=== PATIENT | female | born 1955 | race African-American/Black ===

== ENCOUNTER 2019-06-29 16:30 | Inpatient (IN) | payer MEDICARE, MEDICAID, SELFPAY ==
--- NOTE | ~2019-06-29 | US_ITS ---
EXAMINATION: US carotid duplex BI DATE: 06/30/2019 11:42 INDICATION: Cerebral vascular accident. TECHNIQUE: Grayscale, color Doppler, and pulsed Doppler images of the cervical carotid arteries were obtained. The degree of vessel stenosis is placed in one of the following categories: normal, <50%, 5 0-69%, >=70% but less than near-occlusion, near-occlusion, or total occlusion. Note that percent sten osis relative to normal distal artery lumen diameter is indirectly measured from velocity measurement s as described by Mani, et al. Radiology 2003; 229:340-346. COMPARISON: Ultrasound 07/18/2017 FINDINGS: RIGHT: The right common carotid artery (CCA) peak systolic velocity (PSV) is 53 cm/s. The right internal car otid artery (ICA) PSV is 54 cm/s. The right ICA end-diastolic velocity (EDV) is 21 cm/s. The right IC A/CCA PSV ratio is 1.0. Grayscale and color Doppler images yield an estimate of <50% diameter reducti on from plaque in the ICA. There is antegrade flow in the right vertebral artery. LEFT: The left CCA PSV is 79 cm/s. The left ICA PSV is 74 cm/s. The left ICA EDV is 27 cm/s. The left ICA/C CA PSV ratio is 0.9. Grayscale and color Doppler images yield an estimate of <50% diameter reduction from plaque in the ICA. There is antegrade flow in the left vertebral artery. IMPRESSION: 1. <50% stenosis in the right internal carotid artery. 2. <50% stenosis in the left internal carotid artery. Reviewed, dictated and finalized at location A. FITTER SUPERVISOR MAINTENANCE
--- NOTE | ~2019-06-29 | MR_ITS ---
EXAMINATION: MR brain/brain stem wo/w con EXAM DATE: 06/30/2019 11:42 INDICATION: Stroke. TECHNIQUE: Magnetic resonance imaging (MRI) of the brain/brain stem obtained without contrast. Sagit natalia T1, axial diffusion, gradient echo (T2*), T1, T2, FLAIR sequences obtained. Patient was then inj ected with 20 cc intravenous Multihance contrast. Axial and coronal postcontrast T1 weighted sequence s obtained. Correlation is made to head CT from yesterday. FINDINGS: Sizable acute infarction the right basal ganglia, internal and external capsular, region me asuring about 2 x 3 cm in greatest axial dimensions. There are additional scattered small right linwood sular acute infarctions. There is probable small amount subarachnoid hemorrhage which is better visualized on head CT from yes terday, stable. No left-sided or posterior fossa acute infarctions. No obstructive hydrocephalus or e vidence of underlying brain mass. No extra-axial collections. There are no areas of abnormal enhancem ent on the post contrast images. IMPRESSION: 1. Right basal ganglia/capsular and scattered right subinsular cortical acute infarctions. 2. Small right frontal subarachnoid hemorrhage unchanged. Reviewed, dictated and finalized at location B. BOARD INTELLIGENCE ANALYST
--- NOTE | ~2019-06-29 | CT_ITS ---
EXAMINATION: CTA brain DATE: 06/30/2019 22:15 INDICATION: Stroke and subarachnoid hemorrhage TECHNIQUE: Computed tomographic angiography (CTA) of the head was performed without and with 100 mL O mnipaque-350 intravenous contrast. Volume-rendered and maximum intensity projection 3D reconstruction s of the intracranial arteries were created by the technologist on a separate workstation. The dose-l ength product was 1090.00 mGy-cm. Automated exposure control and iterative reconstruction technique w ere employed. COMPARISON: MRI from today and CT from yesterday FINDINGS: There is an evolving acute/subacute infarction of the right basal ganglia and internal and external capsule. Subarachnoid hemorrhage seen anteriorly in the right frontal lobe is slightly incre ased. There is no mass effect. No intraparenchymal hemorrhage is identified. There is no intracranial mass. The ventricles are normal in size. There is no hemodynamically significant stenosis in the leonides tebral and basilar arteries. There is calcified atherosclerosis and mild stenosis of the cavernous po rtion of the right internal carotid artery. There is expected decreased vascularity in the areas of i nfarction. The left vertebral artery is dominant. There are no aneurysms identified. Both A1 and P1 segments are patent. IMPRESSION: 1. Evolving acute/subacute infarct of the right basal ganglia and internal and external capsule with associated decreased vascularity. 2. Small right frontal subarachnoid hemorrhage with minimal increase. Reviewed, dictated and finalized at location A. FILLING ROOM SWEEPER
--- NOTE | ~2019-06-29 | XR_ITS ---
EXAMINATION: XR chest 2V DATE: 06/29/2019 17:49 INDICATION: Weakness and lethargy TECHNIQUE: frontal and lateral views of the chest were obtained. COMPARISON: None FINDINGS: Lungs appear clear on the frontal projection. Side indeterminate linear lower lobe discoid atelectasi s projecting over the lower thoracic spine on the lateral projection. No pulmonary edema, pleural eff usion or pneumothorax. The cardiomediastinal silhouette is within normal limits for AP technique. The re are bridging osteophytes at multiple levels in the spine, consistent with diffuse idiopathic skele natalia hyperostosis (DISH). IMPRESSION: 1. Mild linear discoid atelectasis in one of the lower lobes. Reviewed, dictated and finalized at location A. E SHOW JUDGE
--- NOTE | ~2019-06-29 | CT_ITS ---
EXAMINATION: CT abdomen pelvis w con DATE: 06/29/2019 17:34 INDICATION: Abdominal pain, lethargy and generalized weakness. TECHNIQUE: Computed tomography (CT) of the abdomen and pelvis was performed with 100 mL Omnipaque-350 intravenous contrast. Automated exposure control and iterative reconstruction technique were employe d. The dose-length product was 1474.42 mGy-cm. COMPARISON: 03/28/2016 FINDINGS: Lung bases are clear. Arch size is normal. No pericardial or pleural effusion. Diffuse hepatic steato sis. Dependently layering high attenuation gallstones in the normal-appearing gallbladder. No intra o r extra hepatic biliary ductal dilation. Spleen, pancreas, bilateral adrenal glands and kidneys are n ormal. Bowels including the appendix are normal. Bladder, uterus and bilateral adnexa are normal. No free intraperitoneal gas or fluid. No pathologically enlarged abdominal or pelvic lymphadenopathy. Se justo lower lumbar spondylosis. There are bridging osteophytes at multiple levels in the thoracic spin e consistent with diffuse idiopathic skeletal hyperostosis (DISH). IMPRESSION: 1. Cholelithiasis. No acute intra-abdominal/pelvic process. Reviewed, dictated and finalized at location A. E GATE MORTISER OPERATOR
--- NOTE | ~2019-06-29 | CT_ITS ---
EXAMINATION: CT brain wo con DATE: 06/29/2019 17:35 INDICATION: Lethargy, generalized weakness. TECHNIQUE: Computed tomography (CT) of the head was performed without intravenous contrast. Sagittal and coronal reconstructions were performed. The mA was adjusted according to patient size. Iterative reconstruction technique was employed. The dose-length product was 605.33 mGy-cm. COMPARISON: None FINDINGS: 3 small regions of decreased attenuation extending from the right frontal lobe centrum semiovale, cau dally to include the right caudate nucleus, right basal ganglia and right subinsular white matter. Th ere is a slightly posterior fourth small region of decreased attenuation at the right front oparietal region. No evident mass effect or encephalomalacia and would favor a subacute to early aircraft sheet metal mechanic cm infarct. Subtle linear region of increased attenuation in the more cephalad and anterior right fr ontal lobe which does not appear to conform to the configuration of the gyri and favor streak artifac t over subarachnoid hemorrhage. No abnormal extra axial fluid collection. Ventricles are normal and s ymmetric. No mass/mass effect. Mild mucoperiosteal thickening in the bilateral ethmoid sinuses. The o rbits and mastoid air cells are normal. IMPRESSION: 1. 4 region of decreased attenuation in close proximity involving the right frontal/frontoparietal lo bes and basal ganglia most likely related to infarct could be late acute to early chronic. 2. Small region of subtle linear increased attenuation in the anterior right frontal lobe with config uration favoring streak artifact over subarachnoid hemorrhage. If patient's neurologic status decline s would consider repeat CT or MRI. Reviewed, dictated and finalized at location A. R DOUBLER IMPRESSION: 1. 4 region of decreased attenuation in close proximity involving the right fro ntal/frontoparietal lobes and basal ganglia most likely related to infarct coul d be late acute to early chronic. 2. Small region of subtle linear increased attenuation in the anterior right fr ontal lobe with configuration favoring streak artifact over subarachnoid hemorr immanuel. If patient's neurologic status declines would consider repeat CT or MRI.
--- NOTE | 2019-06-29 16:29 | ED.WEAKNESS ---
HPI - Weakness General Chief complaint: Weakness Stated complaint: lethargic/weak Time Seen by Provider: 06/29/19 16:29 Source: patient and EMS Mode of arrival: EMS Limitations: no limitations History of Present Illness HPI Narrative: A 64 y/o female presents to the ED, via EMS, with c/o generalized weakness. Pt states that her daughter called EMS today because the patient could not get up to answer the phone. The patient notes that her right knee feels like it is giving out, and that it has been like that for a long time. Per EMS, the patient ran out of insulin weeks ago and has been noncompliant with her HTN medication. EMS states that her blood sugar was over 500 on arrival to the patient's home. Pt adds that her blood sugar has been high intermittently for the last 3-6 months. She reports slight cough, ABD pain, urinary frequency, and diarrhea, but denies decreased food and liquid intake, fever, N/V, dysuria, and hematuria. Pt has a PMHx of HTN, gallstones, hyperlipidemia, and diabetes. Her PCP is Tatiana Jean NP. Complaint: generalized weakness Onset (ago): unknown Duration: constant Location: generalized Context: other (Medication noncompliance) Associated symptoms: other (Slight cough, ABD pain, urinary frequency, diarrhea) Related Data Allergies Allergy/AdvReac Type Severity Reaction Status Date / Time No Known Allergies Allergy Unverified 03/28/16 11:24 Review of Systems Review of Systems: All systems reviewed & are unremarkable except as noted in HPI and below Constitutional: Constitutional: Denies fever(s), Reports weakness (Generalized) and Denies other (Decreased food and liquid intake) Respiratory: Respiratory: Reports cough (Slight) Gastrointestinal: Gastrointestinal: Reports abdominal pain, Reports diarrhea, Denies nausea and Denies vomiting Genitourinary: Genitourinary: Denies hematuria, Reports nocturia and Denies dysuria PENDING SALE TO [facility] Past Medical History Medical History (Updated 06/29/19 @ 18:46 by Carmela Grant MD) Diabetes Gallstones HTN (hypertension) Hyperlipidemia Surgical History Surgical History (Updated 06/29/19 @ 16:52 by Marielena Nathan) Surgical history unknown Social History Social History (Updated 06/29/19 @ 16:52 by Marielena Nathan) Smoking status: Unknown if ever smoked Exam Const: General: cooperative, no acute distress and alert Nutritional Appearance: obese morbidly obese Orientation/consciousness: patient oriented x3 Limitations: no limitations HENMT: Mouth: Yes lip normal and Yes dry mucous membranes Resp: Effort & Inspection: normal respiratory effort Auscultation: clear to auscultation bilaterally Cardio: Rate: tachycardic Rhythm: regular rhythm Heart sounds: Murmur heart sound present systolic Peripheral pulses: dorsalis pedis present bilateral 2+ GI: GI Palp: Yes Soft to palpation and Yes Tenderness to palpation present (GI) (Epigastric) Auscultation: normal bowel sounds Skin: General skin exam: normal color Neuro: General: patient oriented x3 Cognition (Neuro): normal cognition Speech: normal speech Extrem: General: normal to inspection, full ROM, no clubbing, cyanosis or edema and other (Decreased weakness BLE) Psych: Mental Status: mental status grossly normal Affect: normal affect Attitude: cooperative Course Course Emergency Course: Patient with findings of numerous small infarcts on CT that appear to be subacute to chronic in nature. Patient with bilateral lower extremity weakness noted on exam in the ED. Patient with very limited mobility noted by EMS on their initial evaluation. Patient lives alone and is not safe to be on her own at this time. Patient with hyperglycemia and poor management of her chronic health conditions. Patient will be admitted to the hospital service for further evaluation of her CVAs and management of her chronic medical conditions. Patient will likely need some type of rehab or nursing care when she is disch
[2019-06-29 16:31] LABS: Glucose Point of Care 455 (65-105)
[2019-06-29 16:38] VITALS: BP 171/93; PULSE 112; RESP 20; TEMP 37.3; O2SAT 95
--- NOTE | 2019-06-29 16:38 | ECG_ITS ---
Measurements Intervals [place] Rate: 106 P: 49 MI: 152 QRS: 29 QRSD: 85 T: 61 QT: 331 QTc: 441 Interpretive Statements SINUS TACHYCARDIA VOLTAGE CRITERIA FOR LVH NONSPECIFIC T-WAVE ABNORMALITY- LATERAL LEADS ABNORMAL ECG Electronically Signed On 06-30-2019 7:05:21 OPTICAL INSTRUMENT ASSEMBLER by Germán Avery D.O.
[2019-06-29 16:45] VITALS: PULSE 105
[2019-06-29 16:54] LABS: Alveolar/Arterial O2 Gradient 31.1 mmHg; Base Excess ABG -2.9 mEq/l (+/-2.0); Carboxyhemoglobin 0.6 % THb (0-2.0); Device ROOM AIR; Fractional Inspired Oxygen 21 %; HCO3 ABG 21.3 mEq/l (22.0-26.0); Methemoglobin ABG 0.3 %THb (0-1.5); Modified Allen's Test Pass; Oxygen Content ABG 19.5 %vol (16.0-22.0); Oxygen Saturation ABG 95.2 % (95.0-100.0); Oxyhemoglobin 93.7 % THb (90.0-100.0); PCO2 ABG 35.9 mmHg (35.0-45.0); PO2 ABG 75.6 mmHg (80.0-100.0); Reduced Hemoglobin 5.4 %THb (0-5.0); Site Drawn RIGHT RADIAL; Total Hemoglobin 14.8 g/dL (12.0-18.0); pH ABG 7.392 (7.350-7.450)
[2019-06-29] MEDS: SODIUM CHLORIDE 0.9% IV 1,000 ML 999 ML IV CONT (16:55)
[2019-06-29 17:24] LABS: Blood Urea Nitrogen 17 mg/dL (8-26); Estimated CRCL calculation 64 ml/min; Estimated Glomerular Filt Rate 60
[2019-06-29 17:26] LABS: Basophils Percent Auto 0.5 % (0.2-1.2); Eosinophils Percent Auto 0.3 % (0-4.4); Hematocrit 45.8 % (37.0-47.0); Hemoglobin 14.8 g/dL (12.0-15.0); Immature Granulocyte Absolute 0.03 K/mm3 (0.00-0.031); Immature Granulocyte Percent A 0.4 % (0-0.5); Lymphocytes Percent Auto 18.7 % (18.3-44.2); Mean Corpuscular HGB Conc 32.3 g/dl (32-36); Mean Corpuscular Hemoglobin 28.2 pg (26-34); Mean Corpuscular Volume 87.4 fl (80-100); Monocytes Absolute Auto 0.5 K/mm3 (0.1-0.6); Monocytes Percent Auto 6.4 % (2.6-8.5); Neutrophils Absolute Auto 5.5 K/mm3 (1.3-6.7); Neutrophils Percent Auto 73.7 % (45.5-73.1); Platelet Count Result 225 k/mm3 (150-375); Red Blood Count 5.24 M/mm3 (4.2-5.4); Red Cell Distribution Width 13.3 % (11.5-14.5); White Blood Count 7.5 K/mm3 (4.5-10.0)
[2019-06-29 17:35] LABS: Alanine Aminotransferase 28 U/L (4-35); Albumin Level 4.6 g/dL (3.5-5.1); Alkaline Phosphatase 204 U/L (38-126); Aspartate Amino Transferase 25 U/L (14-36); Bilirubin,Total 0.5 mg/dL (0.2-1.3); Blood Urea Nitrogen 18 mg/dL (7-17); Calcium 9.7 mg/dL (8.4-10.2); Carbon Dioxide 19 mmol/L (22-30); Chloride 101 mmol/L (98-107); Creatine Kinase 280 U/L (30-135); Estimated CRCL calculation 78 ml/min; Estimated Glomerular Filt Rate > 60; Glucose 492 mg/dL (65-105); INR 0.9; Lipase 106 U/L (23-300); Magnesium 2.1 mg/dL (1.6-2.3); Potassium 4.7 mmol/L (3.4-5.0); Prothrombin Time 12.3 Seconds (11.1-14.7); Sodium 139 mmol/L (137-145)
[2019-06-29 17:36] LABS: Lactic Acid Reflex 2.5 mmol/L (0.7-2.1)
[2019-06-29 17:47] LABS: Partial Thromboplastin Time < 20.0 SECONDS (22.3-36.8)
[2019-06-29 18:15] LABS: Thyroid Stimulating Hormone Reflex 0.813 uIU/mL (0.465-4.68)
[2019-06-29 18:29] LABS: Add Urine Microscopic? YES; Appearance Urine Clear (Clear); Bilirubin Urine Negative (Negative); Blood Urine 2+ (Negative); Color Urine Yellow (Yellow); Glucose Urine UA 3+ mg/dL (Negative); Ketones Urine 1+ mg/dL (Negative); Leukocyte Esterase Ur Negative LEU/UL (Negative); Nitrate Urine Negative (Negative); Protein Urine Negative (Negative); RBC Urine 21-50 /hpf (0-2); Squamous Epithelial Cell Urine Few /hpf (Few); Urobilinogen Urine Negative mg/dL (<2.0); WBC Urine 0-3 /hpf
[2019-06-29 18:30] LABS: Specific Grav Ur 1.035 (1.001-1.035)
[2019-06-29 18:50] LABS: Glucose Point of Care 421 (65-105)
--- NOTE | 2019-06-29 19:00 | PM.IMHP ---
H&P: HPI History of Present Illness Chief complaint: Weakness. Narrative: Eli Jean is a 64 year old female with type 2 diabetes mellitus, hypertension, and hyperlipidemia who presented to the emergency department earlier this afternoon via EMS from home for evaluation of weakness. She is only a fair historian, as she is not happy with having to be admitted in her answers are short and occasionally unrevealing. Several children are at bedside, and they provide additional information with the patient's permission. A daughter called police for a welfare check after the patient was not answering her phone. The patient was found sitting on her couch and was unable to get up because her right knee ?seemed to be giving out.? Apparently that is not a new finding, however. Random glucose was over 500 on EMS arrival, the patient admits that she has been out of her insulin for many weeks. It sounds like she has been rationing her medications as well, due to financial concerns. She has no complaints at the time my evaluation but did mention having a slight cough, urinary frequency, and loose stools to the emergency department physician. Brain CT today concerning for subacute infarctions and she is being admitted in this setting. She denies vertigo, auditory and visual changes, focal weakness, and paresthesias. She has not had racing heart, palpitations, and denies history of atrial fibrillation. No dysarthria, dysphagia, or facial asymmetry. Review of Systems Review of Systems: Narrative: Twelve systems were reviewed with pertinent positives and negatives as per HPI. No fever, chills, or sweats. She denies cold and flu symptoms. She has chronic dyspnea on exertion, which is unchanged. She has not had nausea or vomiting. Occasional mild dysuria. Denies blurry vision and polyuria. Mild polydipsia today. Except as documented, all other systems were reviewed and are negative. [facility] Past Medical History Medical History (Updated 06/30/19 @ 02:18 by Hiral Dallas PA-C) Gallstones Hyperlipidemia Hypertension Type 2 diabetes mellitus with insulin therapy Hemoglobin A1c is 9.9 today. Surgical History Surgical History (Updated 06/30/19 @ 02:13 by Hiral Dallas PA-C) No significant past surgical history Family History Family History (Updated 06/30/19 @ 02:14 by Hiral Dallas PA-C) Mother Hypertension Sibling Carcinoma of colon Sibling Acute myocardial infarction Father Alcohol abuse Social History Social History (Updated 06/30/19 @ 02:14 by Hiral Dallas PA-C) Social History: The patient lives in her own apartment in [place]. She designates her children as her surrogate decision makers. She wishes to be DNR, but does not have an Advance directive set up. She is a lifelong nonsmoker and denies alcohol and drug use. Spiritual care concerns: No Agree to blood products: No Meds Home Medications and Allergies Home Medications Medication Instructions Recorded Confirmed Type amlodipine 10 mg PO DAILY 06/29/19 06/29/19 History atorvastatin 20 mg PO HS 06/29/19 06/29/19 History diclofenac sodium 75 mg PO BID 06/29/19 06/29/19 History furosemide 20 mg PO DAILY 06/29/19 06/29/19 History insulin NPH isoph U-100 human See Rx Instructions .ROUTE .COMPLEX 06/29/19 06/29/19 History [Novolin N NPH U-100 Insulin] lisinopril 40 mg PO DAILY 06/29/19 06/29/19 History metoprolol tartrate 100 mg PO DAILY 06/29/19 06/29/19 History Allergies Allergy/AdvReac Type Severity Reaction Status Date / Time No Known Allergies Allergy Unverified 03/28/16 11:24 Vital Signs Vital Signs - 24 hr 06/29/19 16:38 06/29/19 16:45 06/29/19 19:20 Temperature 99.1 F Pulse Rate 112 H 105 H 111 H Respiratory Rate 20 18 Blood Pressure 171/93 H 153/74 H Pulse Oximetry 95 100 Exam Narrative: Exam Narrative: General: A well-developed, well-nourished female sitting up in bed in no acute d
[2019-06-29] MEDS: INSULIN HUMAN REGULAR (*BKC) 100 UNITS/ML 10 UNITS SUB-Q (19:04)
[2019-06-29 19:20] VITALS: BP 153/74; PULSE 111; RESP 18; O2SAT 100
[2019-06-29 19:40] VITALS: BP 169/66; PULSE 112; RESP 20; TEMP 37.3; O2SAT 100; BMI 48.3
--- NOTE | 2019-06-29 20:12 | ADMGEN ---
This patient, Eli Jean, was admitted to [address] [facility] Surg Room 323-01. Patient/family oriented to hospital policies and general routines including ID bracelet, bed and alarms, visiting hours, pain management, procedures, bathroom and other care routines, personal items, smoking policy, room service/diet, and visiting hours. Valuables list has been completed. Information on how to activate the Rapid Response Team has been discussed. Patient/Family are encouraged to report perceived risks to care and to ask questions if they do not understand what they are told or what they should do.
[2019-06-29 20:21] LABS: Reflex Lactic Acid Yes or No Add Lactic
--- NOTE | 2019-06-29 20:36 | ADMGEN ---
This patient, Eli Jean, was admitted to 3 [facility] Surg Room 323-01. Patient/family oriented to hospital policies and general routines including ID bracelet, bed and alarms, visiting hours, pain management, procedures, bathroom and other care routines, personal items, smoking policy, room service/diet, and visiting hours. Valuables list has been completed. Information on how to activate the Rapid Response Team has been discussed. Patient/Family are encouraged to report perceived risks to care and to ask questions if they do not understand what they are told or what they should do.
[2019-06-29 21:16] LABS: Lactic Acid 1.5 mmol/L (0.7-2.1)
[2019-06-29] MEDS: SODIUM CHLORIDE 0.9% IV 1,000 ML 125 ML IV CONT (22:18)
[2019-06-29 22:54] LABS: Glucose Point of Care 444 (65-105)
[2019-06-29 22:57] LABS: Glucose Point of Care 403 (65-105)
[2019-06-29 23:46] LABS: Blood Urea Nitrogen 19 mg/dL (7-17); Carbon Dioxide 23 mmol/L (22-30); Chloride 99 mmol/L (98-107); Estimated CRCL calculation 78 ml/min; Estimated Glomerular Filt Rate > 60; Glucose 426 mg/dL (65-105); Potassium 4.1 mmol/L (3.4-5.0); Sodium 136 mmol/L (137-145)
[2019-06-29 23:47] LABS: Hemoglobin A1C 9.9 % (<5.7)
[2019-06-29] MEDS: INSULIN HUMAN NPH (*BKC) 100 UNITS/ML 13 UNITS SUB-Q (23:53)
[2019-06-30] VITALS (11 sets, daily range): BP systolic 118–144; BP diastolic 42–65; PULSE 74–101; RESP 16–20; TEMP 36.3–36.8; O2SAT 98–100
[2019-06-30 01:13] LABS: Glucose Point of Care 413 (65-105)
[2019-06-30] MEDS: INSULIN ASPART (*BKC) 100 UNITS/ML 8 UNITS SUB-Q (01:58)
[2019-06-30] MEDS: ACETAMINOPHEN 325 MG TABLET 650 MG PO (01:58)
[2019-06-30 03:54] LABS: Glucose Point of Care 307 (65-105)
--- NOTE | 2019-06-30 06:00 | ECHO_ITS ---
Patient Info Name: Eli Jean Age: 64 years : 1955 Gender: Female Ht: 66 in Wt: 299 lbs BSA: 2.59 m2 HR: 89 bpm BP: 169 / 66 mmHg Heart Rhythm: Sinus Rhythm Technical Quality: Good Exam Date: 06/30/2019 12:22 PM Exam Location: [facility] Pulmonary Exam Room: [facility] Patient Status: Inpatient Admit Date: 06/29/2019 Staff Ordering Physician: Carmela Grant MD Wheel Assembler: Francy Saeed RDCS Attending Provider: Renato Ramirez MD Referring Physician: Rudy KOHLER; Exam Type: CA echo doppler color flow Study Info Indications - cva Complete two-dimensional, color flow and Doppler transthoracic echocardiogram is performed. Summary 1. There is moderate concentric increased left ventricular wall thickness. 2. Left ventricular systolic function is normal, estimated at 60-65%. 3. The left ventricular diastolic function is grade I diastolic dysfunction. 4. There is moderate to severe aortic valve stenosis with a peak velocity of 371 cm/s, mean gradient of 40 mmHg, and aortic valve area of 0.9 cm2. 5. Compared with 2016. has progressed with prior SKYLAR of 1.4cm2. Left Ventricle Left ventricular chamber dimension is normal. Left ventricular systolic function is normal, estimated at 60-65%. There is moderate concentric increased left ventricular wall thickness. The left ventricular diastolic function is grade I diastolic dysfunction. Right Ventricle Right ventricular chamber dimension is normal. Left Atria Left atrial chamber dimension is mildly enlarged. Right Atria Right atrial chamber dimension is normal. Aortic Valve The aortic valve is trileaflet. There is moderate aortic valve sclerosis. There is moderate to severe aortic valve stenosis with a peak velocity of 371 cm/s, mean gradient of 40 mmHg, and aortic valve area of 0.9 cm2. There is trace aortic valve regurgitation. Pulmonic Valve The pulmonic valve is not well visualized. Mitral Valve The mitral valve has normal leaflets and calcified annulus. Tricuspid Valve The tricuspid valve leaflets are normal. Pericardium/Pleural The pericardium appears normal. Aorta The aortic root size at the sinus of Valsalva is normal. Left Ventricular Outflow Tract Name Value Normal LVOT 2D LVOT Diameter 2.0 cm LVOT Doppler LVOT Peak Gradient 5 mmHg LVOT Mean Gradient 4 mmHg LVOT VTI 25 cm LVOT VTI/AV VTI Ratio 0.3 LVOT Stroke Volume 79 ml LVOT CO 17.7 l/min LVOT CI 6.8 l/min/m2 Pulmonic Valve Name Value Normal PV Doppler PV Peak Gradient 3 mmHg PV Regurgitation Doppler
[2019-06-30 06:31] LABS: Creatine Kinase 231 U/L (30-135)
[2019-06-30] MEDS: AMLODIPINE BESYLATE 5 MG TABLET 10 MG PO (09:00)
[2019-06-30] MEDS: lisinopriL 20 MG TABLET 40 MG PO (09:00)
[2019-06-30] MEDS: DICLOFENAC SOD 75 MG TABLET.EC PO ×2 (09:01→17:27)
[2019-06-30] MEDS: METOPROLOL TARTRATE 50 MG TAB PO ×2 (09:01→20:53)
[2019-06-30] MEDS: FUROSEMIDE 20 MG TABLET PO (09:02)
[2019-06-30] MEDS: SODIUM CHLORIDE 0.9% IV 1,000 ML 125 ML IV CONT ×2 (09:05→20:56)
[2019-06-30] MEDS: INSULIN ASPART (*BKC) 100 UNITS/ML SUB-Q ×3 (09:07→17:27)
[2019-06-30] MEDS: INSULIN HUMAN NPH (*BKC) 100 UNITS/ML 23 UNITS SUB-Q (09:07)
[2019-06-30 09:13] LABS: Glucose Point of Care 352 (65-105)
[2019-06-30 12:00] LABS: Glucose Point of Care 337 (65-105)
[2019-06-30] MEDS: ASPIRIN 81 MG ENTERIC TABLET PO (12:03)
[2019-06-30 17:38] LABS: Glucose Point of Care 371 (65-105)
--- NOTE | 2019-06-30 17:43 | PM.IMPN ---
Progress Note: A&P Assessment and Plan (1) CVA (cerebral vascular accident): Qualifiers: CVA mechanism: unspecified Qualified Code(s): I63.9 - Cerebral infarction, unspecified Code(s): I63.9 - Cerebral infarction, unspecified Status: Acute Assessment and Plan: 06/30/19 17:43 Patient is 64-year-old female with history of diabetes hypertension and and hyperlipidemia was brought to the emergency department the request of her children by EMS see was found in her apartment quite somnolent had not been taking her medication for sometime, patient is a very poor historian her main concern is the pain in her right knee which had been persisting and had been seen by her primary physician and was given steroid injection, patient CT scan of the head showed the patient has a 1. 4 region of decreased attenuation in close proximity involving the right frontal/frontoparietal lobes and basal ganglia most likely related to infarct could be late acute to early chronic. 2. Small region of subtle linear increased attenuation in the anterior right frontal lobe with configuration favoring streak artifact over subarachnoid hemorrhage. If patient's neurologic status declines would consider repeat CT or MRI. Which also showed 1. Right basal ganglia/capsular and scattered right subinsular cortical acute infarctions. 2. Small right frontal subarachnoid hemorrhage unchanged. to further evaluate patien had cardiac echo and carotid US which are essentially normal. patient is on baby aspirin D/W with Dr. Mota patient with subarachhoid hemorrhage, will stop aspirin and order CTA of head (2) Type 2 diabetes mellitus with insulin therapy: Code(s): E11.9 - Type 2 diabetes mellitus without complications; Z79.4 - nursing home (current) use of insulin Status: Acute Assessment and Plan: With hyperglycemia today and hemoglobin A1c of 9.9%. She ran out of insulin many weeks ago, is a concerned about the cost of these. Will initiate sliding scale insulin, Accu-Cheks, and hypoglycemic protocol. (3) Elevated creatine kinase: Code(s): R74.8 - Abnormal levels of other serum enzymes Status: Acute Assessment and Plan: Patient apparently had been sitting on a cot for quite a while today. Level is not elevated enough to be consider rhabdomyolysis, but we will trend. Judicious IV fluid rehydration. (4) Hypertension: Code(s): I10 - Essential (primary) hypertension Status: Acute Assessment and Plan: Blood pressures were reviewed and they are not at goal. I am not certain she has been taking all of her medications as prescribed. For now will resume antihypertensives and monitor daily. Time Spent With Patient Time with patient: 15 - 25 minutes Subjective Date/time seen: 06/30/19 17:43 Patient is 64-year-old female with history of diabetes hypertension and and hyperlipidemia was brought to the emergency department the request of her children by EMS see was found in her apartment quite somnolent had not been taking her medication for sometime, patient is a very poor historian her main concern is the pain in her right knee which had been persisting and had been seen by her primary physician and was given steroid injection, patient CT scan of the head showed the patient has a 1. 4 region of decreased attenuation in close proximity involving the right frontal/frontoparietal lobes and basal ganglia most likely related to infarct could be late acute to early chronic. 2. Small region of subtle linear increased attenuation in the anterior right frontal lobe with configuration favoring streak artifact over subarachnoid hemorrhage. If patient's neurologic status declines would consider repeat CT or MRI. Which also showed 1. Right basal ganglia/capsular and scattered right subinsular cortical acute infarctions. 2. Small right frontal subarachnoid hemorrhage unchanged
--- NOTE | 2019-06-30 19:53 | PC.NURSE ---
Pt ambulated back to bed after having needed the ani plus to get to bathroom. OT had been watching her and left her under the care of her family. Family asking for food reheated during pt care, asking for volume on TV up when we were trying to send pt to CT, explained to family we would happily help them but needed to care for their mom first. Family okay with mom doing whatever she wants; i encouraged them to help her stay safe, leave IV alone, call prior to eating for fingerstick. Informed pt and family door needed to stay open for mom's safety. Family adamant she doesn't need a sitter. continued with bed alarm.
[2019-06-30] MEDS: ATORVASTATIN 20 MG TABLET PO (20:53)
[2019-06-30] MEDS: INSULIN HUMAN NPH (*BKC) 100 UNITS/ML 13 UNITS SUB-Q (20:59)
[2019-06-30 21:36] LABS: Glucose Point of Care 376 (65-105)
[2019-07-01] VITALS (12 sets, daily range): BP systolic 117–139; BP diastolic 60–63; PULSE 61–78; RESP 16–18; TEMP 36.3–36.9; O2SAT 95–100
[2019-07-01] MEDS: SODIUM CHLORIDE 0.9% IV 1,000 ML 125 ML IV CONT (05:58)
[2019-07-01 06:43] LABS: Basophils Percent Auto 0.5 % (0.2-1.2); Eosinophils Absolute Auto 0.2 K/mm3 (0-0.3); Eosinophils Percent Auto 3.8 % (0-4.4); Hematocrit 42.2 % (37.0-47.0); Hemoglobin 13.4 g/dL (12.0-15.0); Immature Granulocyte Absolute 0.02 K/mm3 (0.00-0.031); Immature Granulocyte Percent A 0.3 % (0-0.5); Lymphocytes Absolute Auto 1.62 K/mm3 (0.9-3.2); Lymphocytes Percent Auto 26.5 % (18.3-44.2); Mean Corpuscular HGB Conc 31.8 g/dl (32-36); Mean Corpuscular Hemoglobin 28.3 pg (26-34); Mean Corpuscular Volume 89.2 fl (80-100); Mean Platelet Volume 11.6 fl (7.4-10.4); Monocytes Absolute Auto 0.5 K/mm3 (0.1-0.6); Monocytes Percent Auto 8.5 % (2.6-8.5); Neutrophils Absolute Auto 3.7 K/mm3 (1.3-6.7); Neutrophils Percent Auto 60.4 % (45.5-73.1); Platelet Count Result 189 k/mm3 (150-375); Red Blood Count 4.73 M/mm3 (4.2-5.4); Red Cell Distribution Width 13.6 % (11.5-14.5); White Blood Count 6.1 K/mm3 (4.5-10.0)
[2019-07-01 06:58] LABS: Blood Urea Nitrogen 25 mg/dL (7-17); Calcium 9.1 mg/dL (8.4-10.2); Carbon Dioxide 19 mmol/L (22-30); Chloride 104 mmol/L (98-107); Estimated CRCL calculation 70 ml/min; Estimated Glomerular Filt Rate > 60; Glucose 302 mg/dL (65-105); Potassium 4.5 mmol/L (3.4-5.0); Sodium 138 mmol/L (137-145)
[2019-07-01 08:16] LABS: Glucose Point of Care 316 (65-105)
[2019-07-01] MEDS: DICLOFENAC SOD 75 MG TABLET.EC PO (09:24)
[2019-07-01] MEDS: METOPROLOL TARTRATE 50 MG TAB PO ×2 (09:24→21:42)
[2019-07-01] MEDS: AMLODIPINE BESYLATE 5 MG TABLET 10 MG PO (09:26)
[2019-07-01] MEDS: INSULIN ASPART (*BKC) 100 UNITS/ML SUB-Q ×3 (09:26→18:14)
[2019-07-01] MEDS: FUROSEMIDE 20 MG TABLET PO (09:26)
[2019-07-01] MEDS: lisinopriL 20 MG TABLET 40 MG PO (09:26)
[2019-07-01] MEDS: INSULIN HUMAN NPH (*BKC) 100 UNITS/ML 23 UNITS SUB-Q (09:38)
[2019-07-01 11:43] LABS: Glucose Point of Care 289 (65-105)
--- NOTE | 2019-07-01 12:39 | CONS_ITS ---
DATE OF CONSULTATION: Patient of Dr. Renato Ramirez. HISTORY: This 64 years old right-handed female has been admitted to [facility] through the emergency room for the complaints of generalized weakness in addition to the ongoing history of type 2 diabetes mellitus, hypertension, and hyperlipidemia. As per the information available, the patient's daughter called the police for a welfare check after the patient was not answering her phone. She was found sitting on her couch and was unable to get up because her right knee seemed to be giving out. This was not a new finding for the patient. Random glucose was over 500 on EMS arrival. She had been out of her insulin for several weeks. Reportedly, she has been rationing her medication due to financial concerns. Initial CT scan of the head was compatible with subacute infarct. She was not complaining of any neurological symptoms. Otherwise, she was admitted to the hospital for further evaluation. PAST MEDICAL HISTORY: In the past, she has ongoing history of 1. Gall stone. 2. Hyperlipidemia. 3. Hypertension. 4. Insulin-dependent type 2 diabetes mellitus. SOCIAL HISTORY: The patient has been living in her own apartment with children being the surrogate and she wishes to be DNR. MEDICATIONS: Included 1. Amlodipine 10 mg daily. 2. Atorvastatin 20 mg at night. 3. Diclofenac 75 twice a day. 4. Furosemide 20 mg daily. 5. NPH insulin. 6. Lisinopril 40 mg daily. 7. Metoprolol 100 mg daily. ALLERGIES: SHE IS NOT ALLERGIC TO ANY MEDICATION. PHYSICAL EXAMINATION: VITAL SIGNS: Evaluation revealed her to be with temp of 99.1, pulse 111, respiration 18, blood pressure 171/93. HEENT: Head normocephalic with no cranial bruit. Ear, nose, throat examination normal. NECK: Supple with no cervical bruit. No thyromegaly. No lymphadenopathy. HEART: Regular with ejection systolic murmur. LUNGS: Clear to auscultation. ABDOMEN: Soft, very flabby. Normal bowel sounds. NEUROLOGICAL: She is awake, alert, interested in going home. Pupils round and regular. Barrios of vision full. Extraocular movements full. Face symmetrical. Tongue midline. Motor examination revealed her to be generally decreased strength, particularly the lower extremities with sluggish reflexes. Decreased sensation distally in both lower extremities. LABORATORY DATA: Evaluation up until now include the normal basic metabolic panel with BUN 18, creatinine 0.9, glucose 492. CPK 280, AST 25, ALT 28, alkaline phos 204, albumin 4.6. UA 3+ glucose. Initial CT scan, right frontal frontoparietal lobes and basal ganglia involved in the decreased attenuation for which the repeat CT scan was suggested. Chest x-ray negative. Abdominal x-ray, cholelithiasis. Doppler study of the carotid less than 50% stenosis bilaterally. CTA of the head and neck, evolving subacute infarct of the right basal ganglia, internal-external capsule with associated decreased vascularity, and a small right frontal subarachnoid hemorrhage with minimal increase. PLAN: Is to continue the treatment as such. Control of the blood pressure, cholesterol, diabetes, and later on she might be started on aspirin every day. COCO LIRIANO M.D. TRAVELING STOREKEEPER TRAVELING STOREKEEPER D I MT: Aida
[2019-07-01] MEDS: ACETAMINOPHEN 325 MG TABLET 650 MG PO (13:27)
--- NOTE | 2019-07-01 16:17 | PM.IMPN ---
Progress Note: A&P Assessment and Plan (1) CVA (cerebral vascular accident): Qualifiers: CVA mechanism: unspecified Qualified Code(s): I63.9 - Cerebral infarction, unspecified Code(s): I63.9 - Cerebral infarction, unspecified Status: Acute Assessment and Plan: 07/01/19 16:17 Patient is 64-year-old female with history of diabetes hypertension and and hyperlipidemia was brought to the emergency department the request of her children by EMS see was found in her apartment quite somnolent had not been taking her medication for sometime, patient is a very poor historian her main concern is the pain in her right knee which had been persisting and had been seen by her primary physician and was given steroid injection, patient CT scan of the head showed the patient has a 1. 4 region of decreased attenuation in close proximity involving the right frontal/frontoparietal lobes and basal ganglia most likely related to infarct could be late acute to early chronic. 2. Small region of subtle linear increased attenuation in the anterior right frontal lobe with configuration favoring streak artifact over subarachnoid hemorrhage. If patient's neurologic status declines would consider repeat CT or MRI. Which also showed 1. Right basal ganglia/capsular and scattered right subinsular cortical acute infarctions. 2. Small right frontal subarachnoid hemorrhage unchanged. to further evaluate patien had cardiac echo and carotid US which are essentially normal. patient is on baby aspirin D/W with Dr. Mota 06/30 patient with subarachhoid hemorrhage, stopped aspirin and order CTA of head which was negative for aneurysim and no siginificant change from MRI, Today patient has no complaints other than chronic right knee pain, Will have PT and OT evaluate the patient and further recommendation to follow. awaiting EEG report. (2) Type 2 diabetes mellitus with insulin therapy: Code(s): E11.9 - Type 2 diabetes mellitus without complications; Z79.4 - [facility] (current[facility] use of insulin Status: Acute Assessment and Plan: With hyperglycemia today and hemoglobin A1c of 9.9%. She ran out of insulin many weeks ago, is a concerned about the cost of these. Will initiate sliding scale insulin, Accu-Cheks, and hypoglycemic protocol. (3) Elevated creatine kinase: Code(s): R74.8 - Abnormal levels of other serum enzymes Status: Acute Assessment and Plan: Patient apparently had been sitting on a cot for quite a while today. Level is not elevated enough to be consider rhabdomyolysis, but we will trend. Judicious IV fluid rehydration. (4) Hypertension: Code(s): I10 - Essential (primary) hypertension Status: Acute Assessment and Plan: Blood pressures were reviewed and they are not at goal. I am not certain she has been taking all of her medications as prescribed. For now will resume antihypertensives and monitor daily. Subjective Date/time seen: 07/01/19 16:17 Patient is 64-year-old female with history of diabetes hypertension and and hyperlipidemia was brought to the emergency department the request of her children by EMS see was found in her apartment quite somnolent had not been taking her medication for sometime, patient is a very poor historian her main concern is the pain in her right knee which had been persisting and had been seen by her primary physician and was given steroid injection, patient CT scan of the head showed the patient has a 1. 4 region of decreased attenuation in close proximity involving the right frontal/frontoparietal lobes and basal ganglia most likely related to infarct could be late acute to early chronic. 2. Small region of subtle linear increased attenuation in the anterior right frontal lobe with configuration favoring streak artifact over subarachnoid hemorrhage. If patient's neurologic status declines would consider repe
[2019-07-01 18:42] LABS: Glucose Point of Care 262 (65-105)
--- NOTE | 2019-07-01 19:28 | PC.NURSE ---
Pt family unhappy with our inattentiveness to their mother and Jaz's attitude. I explained Jaz questioning if the family knew the pt had already had linen change that day, and it was not at all her trying to be rude to them. They want to be called with every diagnostic test and procedure at any time of day; they were unhappy that they did not know she was going for a stat CTA. I explained that Dr. Crane did not order until 1800; daughter stated that she was here until 1999. I informed her that she had left earlier than that since I informed the pt right away and that I was here until 1999. I also explained that if pt were not A/O x 4, we would not allow her to consent for her own procedures. Family feels the room has not been cleaned well. We called housekeeping back in to mop and clean. Pt family requested a list of all meds given to her since she had been a pt. Stacia provided the family the medication report request. Family wants pt checked for incontinence hourly as they feel that she is having incontinent episodes despite her calling out when she needs to toilet. They said a relative would be spending the night. Stacia asked them to not use the bed as there may be a need for a roommate, but we will try to not give them one. Pt family found sitting and lying in bed. When I went to do her accucheck at 1800, family repeatedly questioned whether the accucheck and medicines were really necessary because the pt was sleeping. I explained the importance of the accucheck and insulin and that it would only take 5minutes and she could be back asleep. Pt family stated that they didn't want her to be woke up. I told them we really needed to do both, but could skip her PO med. Accucheck performed and insulin given. Reminded family to order food so pt would be able to eat after kitchen closed.
[2019-07-01 20:23] LABS: Glucose Point of Care 275 (65-105)
[2019-07-01] MEDS: ATORVASTATIN 20 MG TABLET PO (21:43)
[2019-07-01] MEDS: INSULIN HUMAN NPH (*BKC) 100 UNITS/ML 13 UNITS SUB-Q (21:44)
[2019-07-02] VITALS: PULSE 63
[2019-07-02 04:00] VITALS: PULSE 68
[2019-07-02 06:00] VITALS: BP 132/42; PULSE 100; RESP 18; TEMP 36.6; O2SAT 90
[2019-07-02 08:00] VITALS: PULSE 70
--- NOTE | 2019-07-02 08:20 | PC.NURSE ---
Daughter Abebe notified EEG being performed [id number]
--- NOTE | 2019-07-02 08:37 | NEURO_ITS ---
TEST: Electroencephalogram DIAGNOSIS: Possible Seizures PATIENT NUMBER: [id number] EEG NUMBER: CLINICAL HISTORY: Per patient's grandson, patient was found stuck in her chair unable to get up for five hours. Patient is a diabetic and has not taken her insulin for two weeks. Per patient's chart, CT showed evolving acute/subacute infarct. Subarachnoid hemorrhage also was seen anteriorly in right frontal lobe. No history of seizures. No history of traumatic brain injuries or falls. Patient complains of generalized weakness and knee pain. Patient was very hard to set-up and unable to fix leads properly due to continued sleep. Past medical history includes hypertension, diabetes, and hyperlipidemia. CONDITION OF RECORDING: AWAKE, DROWSY, AND SLEEP EEG DESCRIPTION: Basic resting occipital frequency consists of small amounts of poorly organized low-voltage 8-9hz alpha and mixed with low-voltage 15-21hz beta. During drowsiness, low-voltage beta activity is seen diffusely and mixed with multiple muscle artifacts. Bilateral symmetrical sleep activity is seen during sleep. Hyperventilation and photic stimulation not completed. Non- paroxysmal, non-focal, and non-localizing. IMPRESSION: No significant abnormalities found. MTDD
[2019-07-02] MEDS: INSULIN ASPART (*BKC) 100 UNITS/ML SUB-Q ×2 (09:46→14:23)
[2019-07-02] MEDS: INSULIN HUMAN NPH (*BKC) 100 UNITS/ML 23 UNITS SUB-Q (09:47)
[2019-07-02] MEDS: lisinopriL 20 MG TABLET 40 MG PO (09:48)
[2019-07-02] MEDS: AMLODIPINE BESYLATE 5 MG TABLET 10 MG PO (09:48)
[2019-07-02] MEDS: FUROSEMIDE 20 MG TABLET PO (09:48)
[2019-07-02 09:49] VITALS: PULSE 72
[2019-07-02] MEDS: DICLOFENAC SOD 75 MG TABLET.EC PO (09:49)
[2019-07-02] MEDS: METOPROLOL TARTRATE 50 MG TAB PO (09:49)
[2019-07-02 10:00] LABS: Glucose Point of Care 203 (65-105)
--- NOTE | 2019-07-02 13:23 | PM.DS ---
DS: Diagnosis Admitting Diagnosis Admitting Diagnosis: Cerebral infarction, unspecified Discharge Diagnosis (1) CVA (cerebral vascular accident): Qualifiers: CVA mechanism: unspecified Qualified Code(s): I63.9 - Cerebral infarction, unspecified Code(s): I63.9 - Cerebral infarction, unspecified Status: Acute Assessment and Plan: 07/01/19 16:17 Patient is 64-year-old female with history of diabetes hypertension and and hyperlipidemia was brought to the emergency department the request of her children by EMS see was found in her apartment quite somnolent had not been taking her medication for sometime, patient is a very poor historian her main concern is the pain in her right knee which had been persisting and had been seen by her primary physician and was given steroid injection, patient CT scan of the head showed the patient has a 1. 4 region of decreased attenuation in close proximity involving the right frontal/frontoparietal lobes and basal ganglia most likely related to infarct could be late acute to early chronic. 2. Small region of subtle linear increased attenuation in the anterior right frontal lobe with configuration favoring streak artifact over subarachnoid hemorrhage. If patient's neurologic status declines would consider repeat CT or MRI. Which also showed 1. Right basal ganglia/capsular and scattered right subinsular cortical acute infarctions. 2. Small right frontal subarachnoid hemorrhage unchanged. to further evaluate patien had cardiac echo and carotid US which are essentially normal. patient is on baby aspirin D/W with Dr. Mota 06/30 patient with subarachhoid hemorrhage, stopped aspirin and order CTA of head which was negative for aneurysim and no siginificant change from MRI, Today patient has no complaints other than chronic right knee pain, Will have PT and OT evaluate the patient and further recommendation to follow. awaiting EEG report. (2) Type 2 diabetes mellitus with insulin therapy: Code(s): E11.9 - Type 2 diabetes mellitus without complications; Z79.4 - termite control technician (current) use of insulin Status: Acute Assessment and Plan: With hyperglycemia today and hemoglobin A1c of 9.9%. She ran out of insulin many weeks ago, is a concerned about the cost of these. Will initiate sliding scale insulin, Accu-Cheks, and hypoglycemic protocol. (3) Elevated creatine kinase: Code(s): R74.8 - Abnormal levels of other serum enzymes Status: Acute Assessment and Plan: Patient apparently had been sitting on a cot for quite a while today. Level is not elevated enough to be consider rhabdomyolysis, but we will trend. Judicious IV fluid rehydration. (4) Hypertension: Code(s): I10 - Essential (primary) hypertension Status: Acute Assessment and Plan: Blood pressures were reviewed and they are not at goal. I am not certain she has been taking all of her medications as prescribed. For now will resume antihypertensives and monitor daily. DS: Summary Time Spent with Patient Time attestation: Total time spent providing and/or coordinating discharge services: Exam Narrative: Exam Narrative: Patient is a morbidly obese Const: General: comfortable and no acute distress HENMT: General nose exam: Normal nares present Mouth: Yes moist mucous membranes Eyes: General: appearance normal, both eyes and all related structures Sclera: sclerae normal Neck: Neck: supple Resp: Effort & Inspection: normal respiratory effort Auscultation: clear to auscultation bilaterally Cardio: Rate: regular rate Rhythm: regular rhythm GI: Auscultation: normal bowel sounds Other: Morbidly obese Skin: General skin exam: normal color and no rashes or lesions noted Neuro: Speech: normal speech Sensory Exam: normal sensation Extrem: Other: Lower extremity morbidly of Psych: Affect: Anxious affect present DS: Data
--- NOTE | 2019-07-02 13:27 | PM.IMPN ---
Progress Note: A&P Assessment and Plan (1) CVA (cerebral vascular accident): Qualifiers: CVA mechanism: unspecified Qualified Code(s): I63.9 - Cerebral infarction, unspecified Code(s): I63.9 - Cerebral infarction, unspecified Status: Acute Assessment and Plan: 64-year-old female with history of diabetes hypertension and and hyperlipidemia was brought to the emergency department the request of her children by EMS see was found in her apartment quite somnolent had not been taking her medication for sometime, patient is a very poor historian her main concern is the pain in her right knee which had been persisting and had been seen by her primary physician and was given steroid injection, patient CT scan of the head showed the patient has a 1. 4 region of decreased attenuation in close proximity involving the right frontal/frontoparietal lobes and basal ganglia most likely related to infarct could be late acute to early chronic. 2. Small region of subtle linear increased attenuation in the anterior right frontal lobe with configuration favoring streak artifact over subarachnoid hemorrhage. If patient's neurologic status declines would consider repeat CT or MRI. Which also showed 1. Right basal ganglia/capsular and scattered right subinsular cortical acute infarctions. 2. Small right frontal subarachnoid hemorrhage unchanged. to further evaluate patient had cardiac echo and carotid US which are essentially normal 3. Patient with subarachhoid hemorrhage, aspirin stopped and order CTA of head which was negative for aneurysim and no significant change from MRI See above previous notes, plan now pt is to be dischraged soon No ASA on discharge as per neurology EEG was negative Continue Pt/ OT at home for bilateral leg weakness. Continue physical theraphy here while in the hospital (2) Type 2 diabetes mellitus with insulin therapy: Code(s): E11.9 - Type 2 diabetes mellitus without complications; Z79.4 - [facility] (current) use of insulin Status: Acute Assessment and Plan: Sugars slightly high in the hospital, hemoglobin A1c of 9.9%. Non compliance to her insulin due to cost In hospital pt is on sliding scale insulin, Accu-Cheks, and hypoglycemic protocol. (3) Elevated creatine kinase: Code(s): R74.8 - Abnormal levels of other serum enzymes Status: Acute Assessment and Plan: Encourage fluids (4) Hypertension: Code(s): I10 - Essential (primary) hypertension Status: Acute Assessment and Plan: Blood pressures are better today, hopeful discharge soon Subjective Date/time seen: 07/02/19 13:27 64-year-old female with history of diabetes hypertension and and hyperlipidemia was brought to the emergency department the request of her children by EMS see was found in her apartment quite somnolent had not been taking her medication for sometime, patient is a very poor historian her main concern is the pain in her right knee which had been persisting and had been seen by her primary physician and was given steroid injection, patient CT scan of the head showed the patient has a 1. 4 region of decreased attenuation in close proximity involving the right frontal/frontoparietal lobes and basal ganglia most likely related to infarct could be late acute to early chronic. As per previous note. Pt had EEG today which was negative. Pt can be discharged home soon with home physical theraphy. Review of Systems Review of Systems: All systems reviewed & are unremarkable except as noted in HPI and below Neurologic: Reports weakness Comments: Some weakness in both legs Exam Narrative: Exam Narrative: General: Slightly obese. HEENT: Normocephalic Neck: Supple. No bruits. Respiratory: Lungs are clear to auscultation bilaterally. Cardiovascular: Regular rate and rhythm with S1-S2. 2/6 systolic murmur heard throughou
[2019-07-02 14:27] LABS: Glucose Point of Care 277 (65-105)
--- NOTE | 2019-07-02 17:32 | PM.DS ---
DS: Diagnosis Admitting Diagnosis Admitting Diagnosis: Cerebral infarction, unspecified Discharge Diagnosis (1) CVA (cerebral vascular accident): Qualifiers: CVA mechanism: unspecified Qualified Code(s): I63.9 - Cerebral infarction, unspecified Code(s): I63.9 - Cerebral infarction, unspecified Status: Acute Assessment and Plan: 64-year-old female with history of diabetes hypertension and and hyperlipidemia was brought to the emergency department the request of her children by EMS see was found in her apartment quite somnolent had not been taking her medication for sometime, patient is a very poor historian her main concern is the pain in her right knee which had been persisting and had been seen by her primary physician and was given steroid injection, patient CT scan of the head showed the patient has a A. 4 region of decreased attenuation in close proximity involving the right frontal/frontoparietal lobes and basal ganglia most likely related to infarct could be late acute to early chronic. B. Small region of subtle linear increased attenuation in the anterior right frontal lobe with configuration favoring streak artifact over subarachnoid hemorrhage. If patient's neurologic status declines would consider repeat CT or MRI. Which also showed 1. Right basal ganglia/capsular and scattered right subinsular cortical acute infarctions. C. Small right frontal subarachnoid hemorrhage unchanged. to further evaluate patient had cardiac echo and carotid US which are essentially normal 2. Patient with subarachhoid hemorrhage, aspirin stopped and order CTA of head which was negative for aneurysim and no significant change from MRI 3. See above previous notes from earlier in admission, plan now pt is to be discharged today. No ASA on discharge as per neurology. EEG was negative Continue Pt/ OT at home for bilateral leg weakness. Continue physical theraphy here while in the hospital (2) Type 2 diabetes mellitus with insulin therapy: Code(s): E11.9 - Type 2 diabetes mellitus without complications; Z79.4 - manager terminal (current) use of insulin Status: Acute Assessment and Plan: Sugars slightly high in the hospital, hemoglobin A1c of 9.9%. Non compliance to her insulin due to cost (3) Elevated creatine kinase: Code(s): R74.8 - Abnormal levels of other serum enzymes Status: Acute Assessment and Plan: Encourage fluids (4) Hypertension: Code(s): I10 - Essential (primary) hypertension Status: Acute Assessment and Plan: Blood pressures are better today, hopeful discharge today DS: Summary Time Spent with Patient Time attestation: Total time spent providing and/or coordinating discharge services:38 minutes on day of discharge Exam Narrative: Exam Narrative: General: Slightly obese. HEENT: Normocephalic Neck: Supple. No bruits. Respiratory: Lungs are clear to auscultation bilaterally. Cardiovascular: Regular rate and rhythm with S1-S2. 2/6 systolic murmur heard throughout the precordium. Gastrointestinal: Abdomen is soft, nontender, and nondistended with positive bowel sounds. Morbidly obese. Skin: Warm and dry. No rash or lesions on limited exam. Extremities: No cyanosis, clubbing, or significant edema. Radial and pedal pulses intact. Neurological: Alert and oriented x4. Cranial nerves 2-12 are grossly intact. Speech is clear. No facial asymmetry. Arms 5/5 BL, Legs 4/5 BL. Psychiatric: Poor eye contact. possible depression DS: Data Data Completed and Pending Labs on day of discharge: Labs from last 24 hours 07/02/19 07/02/19 07/01/19 12:47 09:42 20:12 POC Capillary Glucose 277 H 203 H 275 H 07/01/19 18:05 POC Capillary Glucose 262 H Discharge Plan Discharge Attending physician on discharge: Sommer Leos Consulting providers: Dusty Mota Discharging Clinician: Yessica
== END 2019-07-02 16:50 | disposition home health service (06) | DRG 65 ==
LOC: ANHED 18:46 → ANH3MEDSUR 06-30 02:21
PROVIDERS: Physician Assistant; Admitting Provider Internal Medicine; Emergency Provider Emergency Medicine; PCP Nurse Practitioner Family; Visit Provider Family Medicine
DX: I63.50 Cerebral infarction due to unspecified occlusion or stenosis of unspecified cerebral artery (principal); Z68.42 Body mass index [BMI] 45.0-49.9, adult; I10 Essential (primary) hypertension; E78.5 Hyperlipidemia, unspecified; T38.3X6A Underdosing of insulin and oral hypoglycemic [antidiabetic] drugs, initial encounter; Z91.120 Patient's intentional underdosing of medication regimen due to financial hardship; Z79.4 Long term (current) use of insulin; Z91.14 Patient's other noncompliance with medication regimen; E11.65 Type 2 diabetes mellitus with hyperglycemia; Z66 Do not resuscitate; E66.01 Morbid (severe) obesity due to excess calories
CPT/HCPCS: 36415; 36600; 51701; 70450; 70496; 70553; 71046; 74177; 80048; 80053; 81001; 82375; 82550; 82805; 83036; 83050; 83605; 83690; 83735; 84100; 84443; 85025; 85610; 85730; 87081; 87804; 93005; 93306; 93880; 95816; 97110; 97116; 97161; 97165; 97530; 97535; 99285; A9270; A9577; J1815; J7030; Q9967

== ENCOUNTER 2020-09-22 18:35 | Emergency (ER) | payer MEDICAID, SELFPAY ==
[2020-09-22 19:20] VITALS: BP 167/66; PULSE 114; RESP 16; TEMP 37.6; O2SAT 100
--- NOTE | 2020-09-22 19:21 | ED.SKABFB ---
HPI - Skin/Abscess/Foreign Bdy General Chief complaint: Skin/Abscess/Foreign Body Stated complaint: cyst Time Seen by Provider: 09/22/20 19:21 Source: patient, family (daughter) and RN notes reviewed Mode of arrival: ambulatory Limitations: no limitations History of Present Illness HPI narrative: 65-year-old female presents to the [facility] with complaints of a cyst to her lower abdomen, niyah area for approximately 2-3 weeks. Area of swelling, redness, warm to touch, fluctuant under large pannus. Patient states she has a history of surgical intervention in the past with a similar issue. Has a history of hypertension, diabetes and states she has not taken her medications today. Related Data Home Medications Medication Instructions Recorded Confirmed Novolin N NPH U-100 Insulin See Rx Instructions .ROUTE .COMPLEX 06/29/19 06/29/19 amlodipine 10 mg PO DAILY 06/29/19 06/29/19 atorvastatin 20 mg PO HS 06/29/19 06/29/19 furosemide 20 mg PO DAILY 06/29/19 06/29/19 lisinopril 40 mg PO DAILY 06/29/19 06/29/19 metoprolol tartrate 100 mg PO DAILY 06/29/19 06/29/19 Allergies Allergy/AdvReac Type Severity Reaction Status Date / Time No Known Allergies Allergy Verified 09/22/20 19:32 Review of Systems Review of Systems: All systems reviewed & are unremarkable except as noted in HPI and below Constitutional: Constitutional: Reports as per HPI Cardiovascular: Cardiovascular: Reports no additional cardiovascular complaints and Denies chest pain Respiratory: Respiratory: Reports no additional respiratory complaints Gastrointestinal: Gastrointestinal: Reports no additional gastrointestinal complaints Genitourinary: Genitourinary: Reports no additional female genitourinary complaints Integumentary/Breasts: Skin/Breast: Reports as per HPI and Reports erythema Neurologic: Denies vertigo, Denies dizziness, Denies syncope, Denies headache(s) and Reports weakness (Chronic generalized weakness) Psychiatric: Psychiatric: Reports no additional psychiatric complaints [facility] Past Medical History Medical History Gallstones Hyperlipidemia Hypertension Type 2 diabetes mellitus with insulin therapy Hemoglobin A1c is 9.9 today. Surgical History Surgical History No significant past surgical history Family History Family History Mother Hypertension Sibling Carcinoma of colon Sibling Acute myocardial infarction Father Alcohol abuse Social History Social History Social History: The patient lives in her own apartment in [place]. She designates her children as her surrogate decision makers. She wishes to be DNR, but does not have an Advance directive set up. She is a lifelong nonsmoker and denies alcohol and drug use. Gender identity (if verbalized by the patient): Female Spiritual care concerns: No Agree to blood products: No Comments At the time of my signature, I reviewed and agree with the nursing past medical, surgical, social, and family history. There is no relevant family history pertinent to the patient complaint. Exam Const: General: no acute distress and alert Nutritional Appearance: obese morbidly obese Orientation/consciousness: patient oriented x3 Eyes: Pupils: Equal, round and reactive pupils present Neck: Neck: normal visual inspection Chest: Chest palpation & inspection: normal inspection of the chest Resp: Effort & Inspection: normal respiratory effort Auscultation: clear to auscultation bilaterally Cardio: Rate: tachycardic GI: Inspection: Pannus present and obesity GI Palp: No abdominal tenderness Abdomen image: 1. 14 by approximately 5 cm red raised warm to touch fluctuant area, abscess under pannus. Skin: Wounds: wounds noted Neuro: General: patient oriented x3 and move
[2020-09-22 19:47] LABS: Glucose Point of Care 354 (65-105)
== END 2020-09-22 19:38 | disposition short-term general hospital (02) ==
PROVIDERS: Emergency Provider Nurse Practitioner; PCP Nurse Practitioner Family
DX: L02.211 Cutaneous abscess of abdominal wall (principal); E78.5 Hyperlipidemia, unspecified; I10 Essential (primary) hypertension; E11.9 Type 2 diabetes mellitus without complications
CPT/HCPCS: 82948; 99212; G0463

== ENCOUNTER 2020-09-22 19:55 | Emergency (ER) | payer MEDICAID, SELFPAY ==
--- NOTE | ~2020-09-22 | CT_ITS ---
EXAMINATION: CT abdomen pelvis w con DATE: 09/22/2020 22:02 INDICATION: Abdominal pain. Fever. TECHNIQUE: Computed tomography (CT) of the abdomen and pelvis was performed with 100 mL Omnipaque 350 intravenous contrast. Automated exposure control and iterative reconstruction technique were employe d. The dose-length product was 1498.00 mGy-cm. COMPARISON: CT abdomen and pelvis 06/29/2019 FINDINGS: The visualized portions of the lung bases demonstrate mild atelectasis. No pleural effusion . The heart size is normal. There are coronary artery calcifications. There are calcifications of the aortic valve. No pericardial effusion. There is a small sliding hiatal hernia. The liver and spleen are normal. There are gallstones in the gallbladder, which is normal in size. The pancreas and adrena l glands are normal. The kidneys are normal. There are no dilated loops of bowel. The appendix is nor mal. There are no pathologically enlarged lymph nodes. There is no free intraperitoneal fluid. There is fat stranding in the right groin. There is a 3.7 x 2.9 cm mass in the right groin with 1.7 x 0.9 c m fluid component, likely phlegmon and small abscess. There is severe lower lumbar spondylosis. IMPRESSION: 1. Right groin mass, likely phlegmon and small abscess. Reviewed, dictated and finalized at location A.
[2020-09-22 19:58] VITALS: BP 105/68; PULSE 102; RESP 18; TEMP 37.1; O2SAT 100
[2020-09-22 21:29] LABS: Basophils Percent Auto 0.3 % (0.2-1.2); Eosinophils Percent Auto 0.1 % (0-4.4); Hematocrit 44.8 % (37.0-47.0); Hemoglobin 14.6 g/dL (12.0-15.0); Immature Granulocyte Absolute 0.05 K/mm3 (0.00-0.031); Immature Granulocyte Percent A 0.4 % (0-0.5); Lymphocytes Absolute Auto 1.49 K/mm3 (0.9-3.2); Lymphocytes Percent Auto 11.7 % (18.3-44.2); Mean Corpuscular HGB Conc 32.6 g/dl (32-36); Mean Corpuscular Hemoglobin 28.5 pg (26-34); Mean Corpuscular Volume 87.5 fl (80-100); Mean Platelet Volume 11.2 fl (7.4-10.4); Monocytes Percent Auto 7.7 % (2.6-8.5); Neutrophils Absolute Auto 10.2 K/mm3 (1.3-6.7); Neutrophils Percent Auto 79.8 % (45.5-73.1); Platelet Count Result 271 k/mm3 (150-375); Red Blood Count 5.12 M/mm3 (4.2-5.4); Red Cell Distribution Width 12.9 % (11.5-14.5); White Blood Count 12.8 K/mm3 (4.5-10.0)
[2020-09-22] MEDS: MORPHINE SULFATE (*CRX) 4 MG/ML INJ IV PUSH (21:36)
[2020-09-22 21:38] LABS: Anion Gap 8 mmol/L (8-16); Blood Urea Nitrogen 22 mg/dL (7-17); Carbon Dioxide 30 mmol/L (22-30); Chloride 100 mmol/L (98-107); Estimated CRCL calculation 73 ml/min; Estimated Glomerular Filt Rate > 60; Glucose 374 mg/dL (65-105); Potassium 5.1 mmol/L (3.4-5.0); Sodium 138 mmol/L (137-145)
[2020-09-22 22:17] VITALS: BP 155/67; PULSE 100; RESP 18; O2SAT 100
[2020-09-22] MEDS: LIDO 1%/EPINEPHRINE 1:100,000 20 ML VIAL 10 ML INFILTRATE (22:46)
--- NOTE | 2020-09-22 23:08 | ED.SKABFB ---
HPI - Skin/Abscess/Foreign Bdy General Chief complaint: Skin/Abscess/Foreign Body Stated complaint: cyst on abdomen Time Seen by Provider: 09/22/20 20:13 History of Present Illness HPI narrative: Patient is a 65-year-old female who presents with swelling to her suprapubic region on the right side. Has history of cysts in the region that have required drainage. Worsening over last couple days and associated with difficulty controlling her blood sugar. Denies any dysuria or urinary frequency. Patient does report subjective fever and chills. Pain worse with movement and touch. No alleviating factors. Related Data Home Medications Medication Instructions Recorded Confirmed Novolin N NPH U-100 Insulin See Rx Instructions .ROUTE .COMPLEX 06/29/19 09/22/20 amlodipine 10 mg PO DAILY 06/29/19 09/22/20 atorvastatin 20 mg PO HS 06/29/19 09/22/20 furosemide 20 mg PO DAILY 06/29/19 09/22/20 lisinopril 40 mg PO DAILY 06/29/19 09/22/20 metoprolol tartrate 100 mg PO DAILY 06/29/19 09/22/20 Allergies Allergy/AdvReac Type Severity Reaction Status Date / Time No Known Allergies Allergy Verified 09/22/20 20:02 Review of Systems Review of Systems: All systems reviewed & are unremarkable except as noted in HPI and below Constitutional: Constitutional: Denies chills, Reports fever(s) and Denies weakness ENT: Denies nasal congestion and Denies sore throat Cardiovascular: Cardiovascular: Denies chest pain and Denies radiating jaw, neck or arm pain Respiratory: Respiratory: Denies cough and Denies dyspnea Gastrointestinal: Gastrointestinal: Denies abdominal pain, Denies nausea and Denies vomiting Integumentary/Breasts: Comments: Suprapubic abscess PMFSH Past Medical History Medical History Gallstones Hyperlipidemia Hypertension Type 2 diabetes mellitus with insulin therapy Hemoglobin A1c is 9.9 today. Surgical History Surgical History No significant past surgical history Family History Family History Mother Hypertension Sibling Carcinoma of colon Sibling Acute myocardial infarction Father Alcohol abuse Social History Social History Social History: The patient lives in her own apartment in [place]. She designates her children as her surrogate decision makers. She wishes to be DNR, but does not have an Advance directive set up. She is a lifelong nonsmoker and denies alcohol and drug use. Gender identity (if verbalized by the patient): Female Spiritual care concerns: No Agree to blood products: No Exam Narrative: Exam Narrative: GENERAL: Well-appearing, well-nourished, and in no acute distress. HEAD: Normocephalic, atraumatic. CHEST: Clear to auscultation. No respiratory distress. HEART: Regular rate and rhythm. Normal peripheral pulses. ABDOMEN: Soft, nontender, nondistended. Open abscess right suprapubic region with induration. EXTREMITIES: Normal range of motion. No edema. SKIN: Warm, dry, no rash. NEURO: Alert and oriented x3. PSYCH: Normal mood and affect. Course Vital Signs Vital signs: Vital Signs Temperature 98.7 F 09/22/20 19:58 Pulse Rate 102 H 09/22/20 19:58 Respiratory Rate 18 09/22/20 19:58 Blood Pressure 105/68 09/22/20 19:58 Pulse Oximetry 100 09/22/20 19:58 Temperature 98.7 F 09/22/20 19:58 Pulse Rate 100 09/22/20 22:17 Respiratory Rate 18 09/22/20 22:17 Blood Pressure 155/67 H 09/22/20 22:17 Pulse Oximetry 100 09/22/20 22:17 Procedures Abscess I/D other: Date of Incision: 09/22/20 Time of Incision: 23:13 Local Anesthetic: lidocaine 1% and with epi Amount of anesthesia used (mL): 7 Technique: incised with #11 blade Irrigation: No Packing used?: iodoform I&D Results: Pus Compli
[2020-09-22] MEDS: ONDANSETRON INJ 4 MG/2 ML VIAL IV PUSH (23:21)
[2020-09-22] MEDS: HYDROcodone/acetaminophen (*CRX) 5-325 MG TABLET 1 TAB PO (23:22)
[2020-09-22 23:30] VITALS: BP 134/68; PULSE 98; RESP 18; O2SAT 100
== END 2020-09-22 23:30 | disposition home or self-care (01) ==
PROVIDERS: Emergency Provider Emergency Medicine; PCP Nurse Practitioner Family
DX: L02.211 Cutaneous abscess of abdominal wall (principal); E11.9 Type 2 diabetes mellitus without complications; E78.5 Hyperlipidemia, unspecified; I10 Essential (primary) hypertension; Z79.4 Long term (current) use of insulin; Z66 Do not resuscitate
CPT/HCPCS: 10061; 36415; 74177; 80048; 82948; 85025; 96374; 96375; 99284; A9270; J2270; J2405; Q9967